=== PATIENT | female | born 2000 | race Caucasian/White ===

== ENCOUNTER 2024-10-16 21:33 | Observation (INO) | payer BC ==
[2024-10-16] MEDS ORDERED: DELTASONE 20 MG ONE (21:56)
[2024-10-16] MEDS ORDERED: ZOFRAN ODT 4 MG ONE (21:56)
[2024-10-16] MEDS: ZOFRAN ODT 4 MG PO ONE (21:58)
[2024-10-16] MEDS: DELTASONE 20 MG PO ONE (21:58)
[2024-10-16] MEDS ORDERED: DUONEB 0.5-3 MG/3 ml Neb IH ONE (21:59)
[2024-10-16] MEDS: DUONEB 0.5-3 MG/3 ml Neb IH ONE (22:03)
[2024-10-16] MEDS ORDERED: Ventolin Hfa MDI IH ONE (22:19)
[2024-10-16] MEDS: Ventolin Hfa MDI IH SCH (22:28)
--- NOTE | 2024-10-16 22:35 | ERPHSYRPT ---
- History of Present Illness Time Seen by Provider: 10/16/24 21:50 Source: patient Exam Limitations: no limitations Patient Subjective Stated Complaint: "I have pneumonia, I was seen at [facility] on Monday and diagnosed. They put my on antibiotics but I can't keep them d own. I started vomiting on Monday and can't keep anything down". Triage Nursing Assessment: Pt presents to ER with complaints of vomiting since Monday. Pt started new Abx on Monday (Amoxicillin) and hasn't been able to keep medication down or any food. Pt is alert and oriented x 3. Skin is pink, warm, and dry. Complains of shortness of breath and constant cough. Green sp utum. Pt is having trouble sleeping at night due to coughing. Pt denies pain. Denies diarrhea. Lung sounds present crackles in LLL. Physician History: 24-year-old female diagnosed with left lung pneumonia at [facility] 4 days ago currently on Augmentin presents to our ED with posttussive emesis. Patient states she has been coughing continuously. The cough is productive of greenish sputum. No fever. Patient is not nauseous. Patient's vomitus is posttussive. No chest pain. No shortness of breath at rest. Decreased p.o. Patient appears to have a bronchial component to her pneumonia. Patient otherwise feels well. She voices no other complaints or concerns at this time. Portions of this note were created with voice recognition technology. There may be grammatical, spelling, punctuation or sound alike errors Timing/Duration: today Severity: moderate Modifying Factors: Improves With: nothing Associated Symptoms: denies symptoms Allergies/Adverse Reactions: bacitracin [From Neosporin ([id number])] Allergy (Verified 10/16/24 21:54) bacitracin zinc [From Neosporin ([id number])] Allergy (Verified 10/16/24 21:54) neomycin sulfate [From Neosporin ([id number])] Allergy (Verified 10/16/24 21:54) polymyxin B [From Neosporin ([id number])] Allergy (Verified 10/16/24 21:54) Sulfa (Sulfonamide Antibiotics) Allergy (Verified 10/16/24 21:54) SHARLA Allergy (Uncoded 11/27/24 21:54) Home Medications: Amoxicillin/Potassium Clav [Amox-Clav 875-125 mg Tablet] 1 tab PO Q12H 10/16/24 [History] Etonogestrel [Nexplanon] 0 dose SQ BETWEEN UNITS 10/16/24 [History] Hx Tetanus, Diphtheria Vaccination/Date Given: Yes Hx Influenza Vaccination/Date Given: Yes Hx Pneumococcal Vaccination/Date Given: Yes Immunizations Up to Date: Yes Travel Risk - International Travel Have you traveled outside of the country in past 3 weeks: No - Emerging Infectious Disease Are you exhibiting symptoms associated with any current EIDs: Yes Symptoms: Shortness of Breath, Vomitting - Review of Systems Constitutional: No Symptoms, No Fever, No Chills Eyes: No Symptoms Ears, Nose, & Throat: No Symptoms Respiratory: No Symptoms, No Cough, No Dyspnea Cardiac: No Symptoms, No Chest Pain, No Edema, No Syncope Abdominal/Gastrointestinal: No Symptoms, No Abdominal Pain, No Nausea, No Vomiting, No Diarrhea Genitourinary Symptoms: No Symptoms, No Dysuria Musculoskeletal: No Symptoms, No Back Pain, No Neck Pain Skin: No Symptoms, No Rash Neurological: No Symptoms, No Dizziness, No Focal Weakness, No Sensory Changes Psychological: No Symptoms Endocrine: No Symptoms Hematologic/Lymphatic: No Symptoms Immunological/Allergic: No Symptoms All Other Systems: Reviewed and Negative - Past Medical History Pertinent Past Medical History: Yes Neurological History: Migraines ENT History: Other Cardiac History: No Pertinent History Respiratory History: No Pertinent History Endocrine Medical History: No Pertinent History Musculoskeletal History: No Pertinent History GI Medical History: No Pertinent History History: No Pertinent History Psycho-Social History: No Pertinent History Female Reproductive Disorders: No Pertinent History Other Medical History: 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, migraines - Past Surgical History Past Surgical History: No Neuro Surgical History: No Pertinent History Cardiac: No Pertinent History Respiratory: No Pertinent History Gastrointestinal: No Pertinent History Genitourinary: No Pertinent History Musculoskeletal: No Pertinent History Female Surgical History: No Pertinent History - Female History Hx Last Menstrual Period: irregular - has control implant Hx Now: No - Social History Smoking Status: Never smoker Exposure to second hand smoke: No Drug Use: none Patient Lives Alone: No - Social Determinants of Health Will the patient participate in the screening: Yes Do you worry about a steady place to live?: No Do you have any problems with any of the following?: No known problems In the past 12 months,have you had to go without utilities?: No Transportation Issues: No Has anyone in your support network made you feel unsafe?: No Have you or anyone in your house had to go without enough: No - Nursing Vital Signs Nursing Vital Signs: Initial Vital Signs Blood Pressure 119/92 10/16/24 21:40 O2 Sat by Pulse Oximetry 95 10/16/24 21:40 Pain Scale Pain Intensity 0 - Physical Exam General Appearance: no apparent distress, alert, other (Dry appearing oral mucous membranes) Eye Exam: PERRL/EOMI, eyes nml inspection Ears, Nose, Throat Exam: normal ENT inspection, TMs normal, pharynx normal, moist mucous membranes Neck Exam: normal inspection, non-tender, supple, full range of motion Respiratory Exam: normal breath sounds, diminished breath sounds, rhonchi (Coarse breath sounds throughout more so left lower lung field), No respiratory distress Cardiovascular Exam: regular rate/rhythm, normal heart sounds, normal peripheral pulses Gastrointestinal/Abdomen Exam: soft, normal bowel sounds, No tenderness, No mass Back Exam: normal inspection, normal range of motion, No CVA tenderness, No vertebral tenderness Extremity Exam: normal inspection, normal range of motion, pelvis stable Neurologic Exam: alert, oriented x 3, cooperative, normal mood/affect, nml cerebellar function, nml station & gait, sensation nml, No motor deficits Skin Exam: normal color, warm, dry, No rash Lymphatic Exam: No adenopathy SpO2 Interpretation: normal SpO2: 93 O2 Delivery: Room Air - Course Nursing assessment & vital signs reviewed: Yes EKG Interpreted by Me: RATE (111), Sinus Tach, NORMAL AXIS, NORMAL INTERVALS, NORMAL QRS - CT Exams Chest CT Interpretation: Tele-radiologist Report (No PE observed. Left lower lobe pneumonia observed) Ordered Tests: Active Orders 24 hr Category Date Time Status Seasonal Package Handler STAT Care 10/16/24 23:06 Active EKG-ER Only STAT Care 10/16/24 23:06 Active IV Insertion STAT Care 10/16/24 23:06 Active Pulse Oximetry (ED) STAT Care 10/16/24 23:06 Active CHEST WITH CONTRAST [CT] Stat Exams 10/16/24 23:07 Completed CBC W DIFF Stat Lab 10/16/24 23:25 Completed CMP Stat Lab 10/16/24 23:25 Completed CULTURE,URINE Stat Lab 10/16/24 23:45 Received HCG QUALITATIVE, URINE Stat Lab 10/16/24 23:45 Completed UA W/RFX UR CULTURE Stat Lab 10/16/24 23:45 Completed Respiratory MDI ONCE RT 10/16/24 22:44 Active Respiratory Therapy Assessment ONCE RT 10/16/24 22:40 Active Medication Summary Generic Name Dose Route Start Last Admin Trade Name Carlyleq PRN Reason Stop Dose Admin Albuterol Sulfate 1 gm 10/16/24 22:45 10/16/24 22:28 Albuterol Sulfate 8 Gm Mdi Hfa IH 11/15/24 22:44 1 gm 1XONLY JESSI Administration Sodium Chloride 1,000 mls @ 100 mls/hr 10/16/24 23:15 10/16/24 23:46 Sodium Chloride 0.9% 1000 Ml IV 11/15/24 23:14 100 mls/hr .Q10H JESSI Administration Discontinued Medications Generic Name Dose Route Start Last Admin Trade Name Carlyleq PRN Reason Stop Dose Admin Albuterol/Ipratropium 3 ml 10/16/24 21:53 10/16/24 22:03 Ipratropium/Albuterol Sulfate 3 Ml Ampul.Neb IH 10/16/24 21:54 3 ml STAT ONE Administration Albuterol/Ipratropium Confirm 10/16/24 21:59 Ipratropium/Albuterol Sulfate 3 Ml Ampul.Neb Administered 10/16/24 22:00 Dose 3 ml IH .STK-MED ONE Azithromycin 500 mg in 250 mls @ 250 mls/hr 10/16/24 23:14 10/17/24 00:55 Zithromax 500 Mg/ 250 Ml Nacl Premix IV 10/17/24 00:13 Infused STAT STA Infusion Azithromycin Confirm 10/16/24 23:44 Zithromax 500 Mg/ 250 Ml Nacl Premix Administered 10/16/24 23:45 Dose 500 mg in 250 mls @ ud IV .STK-MED ONE Ondansetron HCl 4 mg 10/16/24 21:53 10/16/24 21:58 Zofran 4 Mg/Udtablet Orally Disintegrating PO 10/16/24 21:54 4 mg STAT ONE Administration Ondansetron HCl Confirm 10/16/24 21:56 Zofran 4 Mg/Udtablet Orally Disintegrating Administered 10/16/24 21:57 Dose 4 mg .ROUTE .STK-MED ONE Prednisone 60 mg 10/16/24 21:51 10/16/24 21:58 Prednisone 20 Mg Tablet PO 10/16/24 21:52 60 mg STAT ONE Administration Prednisone Confirm 10/16/24 21:56 Prednisone 20 Mg Tablet Administered 10/16/24 21:57 Dose 60 mg .ROUTE .STK-MED ONE Lab/Rad Data: Laboratory Result Diagrams 10/16/24 23:25 10/16/24 23:25 Laboratory Results 10/16/24 10/16/24 10/16/24 Range/Units 23:45 23:45 23:25 WBC (3.98-10.04) x10^3/uL RBC (3.93-5.22) x10^6/uL Hgb (11.2-15.7) g/dL Hct (34.1-44.9) % MCV (79.4-94.8) fL MCH (25.6-32.2) pg MCHC (32.2-35.5) g/dL RDW (11.7-14.4) % Plt Count (182-369) x10^3/uL MPV (9.4-12.3) fL Gran % (34.0-71.1) % Immature Gran % (Auto) (0.001-0.429) % Nucleat RBC Rel Count (0.00-0.2) % Eos # (Auto) (0.04-0.36) x10^3/uL Immature Gran # (Auto) (0.001-0.031) x10^3u/L Absolute Lymphs (auto) (1.18-3.74) x10^3/uL Absolute Monos (auto) (0.24-0.86) x10^3/uL Absolute Nucleated RBC (0.00-0.012) x10^3u/L Lymphocytes % (19.3-51.7) % Monocytes % (4.7-12.5) % Eosinophils % (0.7-5.8) % Basophils % (0.1-1.2) % Absolute Granulocytes (1.56-6.13) x10^3/uL Basophils # (0.01-0.08) x10^3/uL Sodium 138 (135-145) mmol/L Potassium 3.4 L (3.5-5.1) mmol/L Chloride 101 (98-107) mmol/L Carbon Dioxide 25 (22-30) mmol/L Anion Gap 15.9 H (5-15) MEQ/L BUN 7 (7-17) mg/dL Creatinine 0.80 (0.52-1.04) mg/dL Estimated GFR 106.8 ML/MIN Glucose 115 H (74-106) mg/dL Calcium 9.5 (8.4-10.2) mg/dL Total Bilirubin 0.40 (0.2-1.3) mg/dL AST 23 (14-36) U/L ALT 16 (0-35) U/L Alkaline Phosphatase 53 (38-126) U/L Serum Total Protein 7.4 (6.3-8.2) g/dL Albumin 4.5 (3.5-5.0) g/dL Urine Color Yellow (Yellow) Urine Appearance Cloudy A (Clear) Urine pH 6.0 (4.6-8.0) Ur Specific Lyons 1.020 (1.005-1.030) Urine Protein 30 (Negative) Urine Glucose (UA) Negative (Negative) mg/dL Urine Ketones 80 A (Negative) Urine Blood Moderate A (Negative) Urine Nitrite Negative (Negative) Urine Bilirubin Negative (Negative) Urine Urobilinogen 2.0 A (0.2) mg/dL Ur Leukocyte Esterase Negative (Negative) U Hyaline Cast (Auto) NONE SEEN (0-2) /LPF Urine Microscopic RBC 6-10 A (0-5) /HPF Urine Microscopic WBC 0-2 (0-5) /HPF Ur Epithelial Cells Moderate A (None Seen) /HPF Urine Bacteria None Seen (None Seen) /HPF Urine Culture Reflexed YES (NO) Urine HCG, Qual NEGATIVE (NEGATIVE) 10/16/24 Range/Units 23:25 WBC 8.3 (3.98-10.04) x10^3/uL RBC 5.32 H (3.93-5.22) x10^6/uL Hgb 14.7 (11.2-15.7) g/dL Hct 41.7 (34.1-44.9) % MCV 78.4 L (79.4-94.8) fL MCH 27.6 (25.6-32.2) pg MCHC 35.3 (32.2-35.5) g/dL RDW 12.3 (11.7-14.4) % Plt Count 458 H (182-369) x10^3/uL MPV 9.5 (9.4-12.3) fL Gran % 78.9 H (34.0-71.1) % Immature Gran % (Auto) 0.5 H (0.001-0.429) % Nucleat RBC Rel Count 0.0 (0.00-0.2) % Eos # (Auto) 0.08 (0.04-0.36) x10^3/uL Immature Gran # (Auto) 0.04 H (0.001-0.031) x10^3u/L Absolute Lymphs (auto) 1.04 L (1.18-3.74) x10^3/uL Absolute Monos (auto) 0.56 (0.24-0.86) x10^3/uL Absolute Nucleated RBC 0.00 (0.00-0.012) x10^3u/L Lymphocytes % 12.6 L (19.3-51.7) % Monocytes % 6.8 (4.7-12.5) % Eosinophils % 1.0 (0.7-5.8) % Basophils % 0.2 (0.1-1.2) % Absolute Granulocytes 6.53 H (1.56-6.13) x10^3/uL Basophils # 0.02 (0.01-0.08) x10^3/uL Sodium (135-145) mmol/L Potassium (3.5-5.1) mmol/L Chloride (98-107) mmol/L Carbon Dioxide (22-30) mmol/L Anion Gap (5-15) MEQ/L BUN (7-17) mg/dL Creatinine (0.52-1.04) mg/dL Estimated GFR ML/MIN Glucose (74-106) mg/dL Calcium (8.4-10.2) mg/dL Total Bilirubin (0.2-1.3) mg/dL AST (14-36) U/L ALT (0-35) U/L Alkaline Phosphatase (38-126) U/L Serum Total Protein (6.3-8.2) g/dL Albumin (3.5-5.0) g/dL Urine Color (Yellow) Urine Appearance (Clear) Urine pH (4.6-8.0) Ur Specific Lyons (1.005-1.030) Urine Protein (Negative) Urine Glucose (UA) (Negative) mg/dL Urine Ketones (Negative) Urine Blood (Negative) Urine Nitrite (Negative) Urine Bilirubin (Negative) Urine Urobilinogen (0.2) mg/dL Ur Leukocyte Esterase (Negative) U Hyaline Cast (Auto) (0-2) /LPF Urine Microscopic RBC (0-5) /HPF Urine Microscopic WBC (0-5) /HPF Ur Epithelial Cells (None Seen) /HPF Urine Bacteria (None Seen) /HPF Urine Culture Reflexed (NO) Urine HCG, Qual (NEGATIVE) - Progress Progress: improved Progress Note: We are planning on discharging patient home. Ambulatory pulse oximetry shows that patient's O2 sat with ambulation is 92%. Heart rate was 117. The decision was made to obtain laboratory workup and a CT chest to rule out PE. In light of patient's symptomology and objective findings patient will be admitted for f urther evaluation and treatment. Case discussed with Dr. Goodrich who accepts admission to observation at 11:11 PM. Plan of care discussed with patient. She agrees to admission at [facility] for further evaluation and treatment. No blood cultures obtained as patient already on antibiotics and patient afebrile with no systemic manifestations of infection Portions of this note were created with voice recognition technology. There may be grammatical, spelling, punctuation or sound alike errors Complexity of problem addressed is moderate acute complicated no critical care time complex of data reviewed and analyzed is extensive. Test ordered chest reviewed results analyzed and correlated clinically with history and physical exam. Management discussed with hospitalist Dr. Goodrich who accepts admission to observation. Risk of complication and or risk of morbidity/mortality of patient management is high. Patient requires hospitalization for further evaluation and treatment. Vital stable. Time spent admit patient is approximately 20 minutes. Plan of care established for shared decision making. No social determinants of health present to impede follow-up. Portions of this note were created with voice recognition technology. There may be grammatical, spelling, punctuation or sound alike errors 10/16/24 23:12 As we are preparing for discharge patient was observed to have a low oxygen saturation. Patient ambulated throughout our ED O2 sat dropped to 92%. Patient was short of breath. Patient was tachycardic at 117. CTA chest completed no PE. Case discussed with hospitalist Dr. Goodrich who accepts transfer at [id number]. Plan of care discussed with patient. Patient agrees to admission to [facility] for further evaluation and treatment. Portions of this note were created with voice recognition technology. There may be grammatical, spelling, punctuation or sound alike errors 10/17/24 01:29 Counseled pt/family regarding: diagnosis, need for follow-up - Departure Departure Disposition: Home Clinical Impression: Cough, Bronchitis, Post-tussive emesis, Hypoxia, SOB (shortness of breath), Tachycardia, Dehydration, Hematuria, Calcified lung nodule Condition: Stable Critical Care Time: No Referrals: HUI BERNAL, [employer]PAR[employer] MACHINE TENDER [Primary Care Provider] - Follow up/PCP as directed Instructions: Cough, Adult ED, Bronchitis, Adult ED Additional Instructions: Discharge/Care Plan AYANNA MENESES was seen on 10/16/24 in the Emergency Room. The patient was counseled regarding Diagnosis,Lab results, Imaging studies, need for follow up and when to return to the Emergency Room. Prescriptions given: Discharge Note I have spoken with the patient and/or caregivers. I have explained the patient's condition, diagnosis and treatment plan based on the information available to me at this time. I have answered the patient's and/or caregiver's questions and addressed any concerns. The patient and/or caregivers have as good understanding of the patient's diagnosis, condition and treatment plan as can be expected at this point. The vital signs have been stable. The patient's condition is stable and appropriate for discharge from the emergency department. The patient will pursue further outpatient evaluation with the primary care physician or other designated or consulting physician as outlined in the discharge instructions. The patient and/or caregivers are agreeable to this plan of care and follow-up instructions have been explained in detail. The patient and/or caregivers have received these instruction. The patient/and or caregivers are aware that any significant change in condition or worsening of symptoms should prompt an immediate return to this or the closest emergency department or call 911.
[2024-10-16 23:37] LABS: Absolute Neutrophil Ct (ANC) 6.53 x10^3/uL (1.56-6.13); BASOPHIL % 0.2 % (0.1-1.2); Basophil (Absolute #) 0.02 x10^3/uL (0.01-0.08); Eosinophil (Absolute #) 0.08 x10^3/uL (0.04-0.36); Hematocrit 41.7 % (34.1-44.9); Hemoglobin 14.7 g/dL (11.2-15.7); IMMATURE GRAN # 0.04 x10^3u/L (0.001-0.031); IMMATURE GRAN % 0.5 % (0.001-0.429); Lymphocyte (Absolute #) 1.04 x10^3/uL (1.18-3.74); Lymphocytes % 12.6 % (19.3-51.7); Mean Cell Volume 78.4 fL (79.4-94.8); Mean Corpuscular Hemoglobin 27.6 pg (25.6-32.2); Mean Corpuscular Hgb Concent. 35.3 g/dL (32.2-35.5); Mean Platelet Volume 9.5 fL (9.4-12.3); Monocyte (Absolute #) 0.56 x10^3/uL (0.24-0.86); Monocytes % 6.8 % (4.7-12.5); Neutrophil % 78.9 % (34.0-71.1); Platelet Count 458 x10^3/uL (182-369); Red Blood Count 5.32 x10^6/uL (3.93-5.22); Red Cell Distribution Width 12.3 % (11.7-14.4); White Blood Count 8.3 x10^3/uL (3.98-10.04)
[2024-10-16] MEDS ORDERED: Sodium Chloride 0.9% 1000 ML 1,000 ML ONE (23:44)
[2024-10-16] MEDS ORDERED: Zithromax 500 MG/ 250 ML NaCl Premix 500 MG/250 ML IVPB IV ONE (23:44)
[2024-10-16] MEDS: Sodium Chloride 0.9% 1000 ML 1,000 ML IV SCH (23:46)
[2024-10-16] MEDS: Zithromax 500 MG/ 250 ML NaCl Premix 500 MG/250 ML IVPB IV STA (23:46)
[2024-10-16 23:49] LABS: ALBUMIN 4.5 g/dL (3.5-5.0); ANION GAP 15.9 MEQ/L (5-15); BILIRUBIN,TOTAL 0.4 mg/dL (0.2-1.3); Calcium 9.5 mg/dL (8.4-10.2); Creatinine 1 0.8 mg/dL (0.52-1.04); EST GLOMERULAR FILTRATION RATE 106.8 ML/MIN; Potassium 3.4 mmol/L (3.5-5.1); Total Protein 7.4 g/dL (6.3-8.2)
[2024-10-16 23:56] LABS: HCG URINE TEST NEGATIVE (NEGATIVE)
[2024-10-17 00:16] LABS: Appearance Cloudy (Clear); Bacteria None Seen /HPF (None Seen); Bilirubin Negative (Negative); Blood Moderate (Negative); Epithelial Cells Moderate /HPF (None Seen); Glucose, Urine Negative (Negative); Hyaline Casts NONE SEEN /LPF (0-2); Ketones 80 (Negative); Leukocyte Esterase Negative (Negative); Nitrite Negative (Negative); Protein,Urine Dip 30 (Negative); WBC 0-2 /HPF (0-5)
--- NOTE | 2024-10-17 01:17 | XRAY ---
CLINICAL HISTORY: sob, rule out PE COMPARISON: 10/12/2024 09:46:22 CLOCK REPAIRER TECHNIQUE: Contiguous axial images were obtained from the neck base through the upper abdomen following intravenous administration of contrast material. If IV contrast material had not been administered, the likelihood of detecting abnormalities relevant to the patient's condition would have been substantially decreased. In addition, sagittal and coronal reconstructions were performed. CT scan was performed according to ALARA (as low as reasonably achievable). FINDINGS: Suboptimal contrast bolus without evidence of pulmonary embolism. Peribronchovascular consolidation/collapse with air bronchograms noted in the medial segment of middle lobe, superior lingula and posterobasal segment of left lower lobe. A calcified nodule measuring 7.5 mm noted in apicoposterior segment of left upper lobe.The central airways are patent. There are no pleural effusions.No pneumothorax is seen. A few pretracheal and prevascular lymph nodes noted largest measuring 16 x 7 mm in left prevascular region, likely reactive.A few calcified lymph nodes noted in left prevascular and hilar region largest measuring 12 mm.No axillary adenopathy is identified. The thyroid is unremarkable. The heart, aorta, and pulmonary arteries are of normal size and configuration. There are no appreciable coronary artery and aortic atherosclerotic calcifications. No pericardial effusion is identified. Imaged portions of the upper abdomen are unremarkable. No aggressive appearing osseous lesions are identified. IMPRESSION: 1. Suboptimal contrast bolus without evidence of pulmonary embolism. 2. Consolidation/collapse with air bronchogram in the right middle lobe, superior lingula, and left lower lobe ? suggestive of atelectasis or pneumonia. 3. Calcified left upper lobe nodule (7.5 mm), likely benign. 4. Reactive and calcified lymph nodes in the prevascular and hilar regions. Electronically Signed by: Sriram Fowler MD. (10/17/2024 01:13:32 EST)
--- NOTE | 2024-10-17 01:31 | PCM.HP ---
History of Present Illness - Chief Complaint Chief Complaint: sob Date: 10/17/24 History of Present Illness: Ms. MENESES is a 24 year old female with a past medical history significant for migraine headaches who was recently diagnosed with pneumonia after a patient coughed on her during speech pathology class. She was started on oral antibiotics (amoxicillin) but developed nausea, vomiting and worsening cough productive of greenish sputum. She was unable to take her antibiotics consistently and came to the ER for further evaluation. Upon arrival, she was slightly hypoxic and dropped her O2 sats to 92% with ambulation. She underwent CT chest with IV contrast to rule out PE but did show areas of consolidation with reactive nodes. No fever/chills. - Review of Systems Constitutional: No Fever, No Chills Eyes: No Vision Changes Ears, Nose, & Throat: No Sinus Drainage Respiratory: Cough Cardiac: No Chest Pain, No Edema, No Palpitations Abdominal/Gastrointestinal: Nausea, Vomiting Genitourinary Symptoms: No Dysuria, No Frequency, No Hematuria Musculoskeletal: No Joint Pain Skin: No Rash Neurological: No Focal Weakness Psychological: No Suicidal Ideations Medications & Allergies Home Medications: Home Medication List Amoxicillin/Potassium Clav [Amox-Clav 875-125 mg Tablet] 1 tab PO Q12H 10/16/24 [History Confirmed 10/16/24] Etonogestrel [Nexplanon] 0 dose SQ BETWEEN UNITS 10/16/24 [History Confirmed 10/16/24] Allergies/Adverse Reactions: Allergies Allergy/AdvReac Type Severity Reaction Status Date / Time bacitracin Allergy Verified 10/16/24 21:54 [From Neosporin ([id number])] bacitracin zinc Allergy Verified 10/16/24 21:54 [From Neosporin ([id number]-fdq-[id number])] neomycin sulfate Allergy Verified 10/16/24 21:54 [From Neosporin ([id number]-fib-[id number])] polymyxin B Allergy Verified 10/16/24 21:54 [From Neosporin ([id number]-ebl-hyrvp)] Sulfa (Sulfonamide Allergy Verified 10/16/24 21:54 Antibiotics) SHARLA Allergy Uncoded 10/16/24 21:54 - Past Medical History Past Medical History: Yes Neurological History: Migraines ENT History: Other Cardiac History: No Pertinent History Respiratory History: No Pertinent History Endocrine Medical History: No Pertinent History Musculoskelatal History: No Pertinent History GI Medical History: No Pertinent History History: No Pertinent History Pyscho-Social History: No Pertinent History Reproductive Disorders: No Pertinent History Comment: 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, migraines - Female History Hx Last Menstrual Period: irregular - has control implant Are you now?: No - Past Surgical History Past Surgical History: No Neuro Surgical History: No Pertinent History Cardiac History: No Pertinent History Respiratory Surgery: No Pertinent History GI Surgical History: No Pertinent History Genitourinary Surgical Hx: No Pertinent History Musculskeletal Surgical Hx: No Pertinent History Female Surgical History: No Pertinent History - Social History Smoking Status: Never smoker Exposure to second hand smoke: No Alcohol: None Drug Use: none - Social Determinants of Health Will the patient participate in the screening: Yes Do you worry about a steady place to live?: No Do you have any problems with any of the following?: No known problems In the past 12 months,have you had to go without utilities?: No Have you or anyone in your house had to go without enough: No Transportation Issues: No Has anyone in your support network made you feel unsafe?: No - Physical Exam Vital Signs: Vital Signs - 24 hr Temp Pulse Resp BP BP Pulse Ox 10/17/24 00:53 93 L 10/17/24 00:03 109 H 18 134/69 94 L 10/16/24 23:30 107 H 114/78 95 10/16/24 23:16 121 H 19 119/84 93 L 10/16/24 23:08 94 L 10/16/24 23:05 123 H 20 122/103 96 10/16/24 22:51 94 L 10/16/24 22:30 117 H 18 119/87 93 L 10/16/24 22:28 106 H 19 94 L 10/16/24 22:03 103 H 20 94 L 10/16/24 22:00 122/80 94 L 10/16/24 21:41 97.2 F 131 H 20 119/92 93 L 10/16/24 21:40 119/92 95 General Appearance: no apparent distress Neurologic Exam: alert, oriented x 3 Ears, Nose, Throat Exam: dry mucous membranes Neck Exam: supple Respiratory Exam: No respiratory distress Cardiovascular Exam: regular rate/rhythm Gastrointestinal/Abdomen Exam: soft Extremity Exam: No pedal edema, No swelling Skin Exam: normal color, No rash Results - Labs Lab/Micro Results: Lab Results-Last 24 Hours 10/16/24 10/16/24 10/16/24 Range/Units 23:25 23:25 23:45 WBC 8.3 (3.98-10.04) x10^3/uL RBC 5.32 H (3.93-5.22) x10^6/uL Hgb 14.7 (11.2-15.7) g/dL Hct 41.7 (34.1-44.9) % MCV 78.4 L (79.4-94.8) fL MCH 27.6 (25.6-32.2) pg MCHC 35.3 (32.2-35.5) g/dL RDW 12.3 (11.7-14.4) % Plt Count 458 H (182-369) x10^3/uL MPV 9.5 (9.4-12.3) fL Gran % 78.9 H (34.0-71.1) % Immature Gran % (Auto) 0.5 H (0.001-0.429) % Nucleat RBC Rel Count 0.0 (0.00-0.2) % Eos # (Auto) 0.08 (0.04-0.36) x10^3/uL Immature Gran # (Auto) 0.04 H (0.001-0.031) x10^3u/L Absolute Lymphs (auto) 1.04 L (1.18-3.74) x10^3/uL Absolute Monos (auto) 0.56 (0.24-0.86) x10^3/uL Absolute Nucleated RBC 0.00 (0.00-0.012) x10^3u/L Lymphocytes % 12.6 L (19.3-51.7) % Monocytes % 6.8 (4.7-12.5) % Eosinophils % 1.0 (0.7-5.8) % Basophils % 0.2 (0.1-1.2) % Absolute Granulocytes 6.53 H (1.56-6.13) x10^3/uL Basophils # 0.02 (0.01-0.08) x10^3/uL Sodium 138 (135-145) mmol/L Potassium 3.4 L (3.5-5.1) mmol/L Chloride 101 (98-107) mmol/L Carbon Dioxide 25 (22-30) mmol/L Anion Gap 15.9 H (5-15) MEQ/L BUN 7 (7-17) mg/dL Creatinine 0.80 (0.52-1.04) mg/dL Estimated GFR 106.8 ML/MIN Glucose 115 H (74-106) mg/dL Calcium 9.5 (8.4-10.2) mg/dL Total Bilirubin 0.40 (0.2-1.3) mg/dL AST 23 (14-36) U/L ALT 16 (0-35) U/L Alkaline Phosphatase 53 (38-126) U/L Serum Total Protein 7.4 (6.3-8.2) g/dL Albumin 4.5 (3.5-5.0) g/dL Urine Color Yellow (Yellow) Urine Appearance Cloudy A (Clear) Urine pH 6.0 (4.6-8.0) Ur Specific [place] 1.020 (1.005-1.030) Urine Protein 30 (Negative) Urine Glucose (UA) Negative (Negative) mg/dL Urine Ketones 80 A (Negative) Urine Blood Moderate A (Negative) Urine Nitrite Negative (Negative) Urine Bilirubin Negative (Negative) Urine Urobilinogen 2.0 A (0.2) mg/dL Ur Leukocyte Esterase Negative (Negative) U Hyaline Cast (Auto) NONE SEEN (0-2) /LPF Urine Microscopic RBC 6-10 A (0-5) /HPF Urine Microscopic WBC 0-2 (0-5) /HPF Ur Epithelial Cells Moderate A (None Seen) /HPF Urine Bacteria None Seen (None Seen) /HPF Urine Culture Reflexed YES (NO) Urine HCG, Qual (NEGATIVE) 10/16/24 Range/Units 23:45 WBC (3.98-10.04) x10^3/uL RBC (3.93-5.22) x10^6/uL Hgb (11.2-15.7) g/dL Hct (34.1-44.9) % MCV (79.4-94.8) fL MCH (25.6-32.2) pg MCHC (32.2-35.5) g/dL RDW (11.7-14.4) % Plt Count (182-369) x10^3/uL MPV (9.4-12.3) fL Gran % (34.0-71.1) % Immature Gran % (Auto) (0.001-0.429) % Nucleat RBC Rel Count (0.00-0.2) % Eos # (Auto) (0.04-0.36) x10^3/uL Immature Gran # (Auto) (0.001-0.031) x10^3u/L Absolute Lymphs (auto) (1.18-3.74) x10^3/uL Absolute Monos (auto) (0.24-0.86) x10^3/uL Absolute Nucleated RBC (0.00-0.012) x10^3u/L Lymphocytes % (19.3-51.7) % Monocytes % (4.7-12.5) % Eosinophils % (0.7-5.8) % Basophils % (0.1-1.2) % Absolute Granulocytes (1.56-6.13) x10^3/uL Basophils # (0.01-0.08) x10^3/uL Sodium (135-145) mmol/L Potassium (3.5-5.1) mmol/L Chloride (98-107) mmol/L Carbon Dioxide (22-30) mmol/L Anion Gap (5-15) MEQ/L BUN (7-17) mg/dL Creatinine (0.52-1.04) mg/dL Estimated GFR ML/MIN Glucose (74-106) mg/dL Calcium (8.4-10.2) mg/dL Total Bilirubin (0.2-1.3) mg/dL AST (14-36) U/L ALT (0-35) U/L Alkaline Phosphatase (38-126) U/L Serum Total Protein (6.3-8.2) g/dL Albumin (3.5-5.0) g/dL Urine Color (Yellow) Urine Appearance (Clear) Urine pH (4.6-8.0) Ur Specific [place] (1.005-1.030) Urine Protein (Negative) Urine Glucose (UA) (Negative) mg/dL Urine Ketones (Negative) Urine Blood (Negative) Urine Nitrite (Negative) Urine Bilirubin (Negative) Urine Urobilinogen (0.2) mg/dL Ur Leukocyte Esterase (Negative) U Hyaline Cast (Auto) (0-2) /LPF Urine Microscopic RBC (0-5) /HPF Urine Microscopic WBC (0-5) /HPF Ur Epithelial Cells (None Seen) /HPF Urine Bacteria (None Seen) /HPF Urine Culture Reflexed (NO) Urine HCG, Qual NEGATIVE (NEGATIVE) - Radiology Impressions Radiology Exams & Impressions: Radiology Procedures Category Date Time Status CHEST WITH CONTRAST [CT] Stat Exams 10/16/24 23:07 Completed - Other Procedures and Tests Respiratory Therapy 10/16/24 22:40 Respiratory Therapy Assessment ONCE 10/16/24 22:44 Respiratory MDI ONCE Assessment/Plan (1) Pneumonia Current Visit: Yes Status: Acute Qualifiers: Pneumonia type: due to unspecified organism Assessment & Plan: Community acquired pneumonia - had been on amoxicillin but unable to tolerate, now with some mild hypoxia associated with productive cough 1. Admit to hospital 2. IV antibiotics with Rocephin/Zithromax 3. Supplemental O2 4. Duonebs 5. Monitor O2 sats Code(s): J18.9 - PNEUMONIA, UNSPECIFIED ORGANISM (2) Hypoxia Current Visit: Yes Status: Acute Assessment & Plan: Secondary to pneumonia and bronchitis 1. Supplemental O2 2. Duonebs 3. Defer steroids 4. Monitor O2 sats Code(s): R09.02 - HYPOXEMIA (3) Post-tussive emesis Current Visit: Yes Status: Acute Assessment & Plan: Secondary to cough 1. Anti-emetics 2. Anti-tussives Code(s): R11.10 - VOMITING, UNSPECIFIED Telemedicine Encounter - Telemedicine Encounter Telemedicine Encounter: "The entirety of this encounter was performed via Telemedicine" This visit was performed using real-time audio and video connection between my location and thepatients locationwith the assistance of a surrogateat the patients location. Written or verbal consent was obtained from the patient/guardian to perform this visit usingn[facility] [place] hospitalslemedicine technology. Any patient questions regarding the telemedicine interaction were answered.
[2024-10-17] MEDS ORDERED: Zofran 4 MG/2 ML VIAL IV PRN (02:03)
[2024-10-17] MEDS ORDERED: Robitussin-Dm Syrup PO PRN (02:05)
[2024-10-17] MEDS: DUONEB 0.5-3 MG/3 ml Neb IH SCH (05:31)
[2024-10-17 06:11] LABS: Hematocrit 43.7 % (34.1-44.9); Hemoglobin 14.9 g/dL (11.2-15.7); Mean Cell Volume 80.8 fL (79.4-94.8); Mean Corpuscular Hemoglobin 27.5 pg (25.6-32.2); Mean Corpuscular Hgb Concent. 34.1 g/dL (32.2-35.5); Mean Platelet Volume 9.4 fL (9.4-12.3); Platelet Count 407 x10^3/uL (182-369); Red Blood Count 5.41 x10^6/uL (3.93-5.22)
[2024-10-17 06:25] LABS: ANION GAP 19.2 MEQ/L (5-15); Calcium 9.4 mg/dL (8.4-10.2); Creatinine 1 0.75 mg/dL (0.52-1.04); EST GLOMERULAR FILTRATION RATE 115.4 ML/MIN; MAGNESIUM 2.1 mg/dL (1.6-2.3); Potassium 3.6 mmol/L (3.5-5.1)
[2024-10-17 06:54] LABS: BAND 2 % (0.0-2.0); Lymphocytes 15 % (19.3-51.7); Monocyte 2 % (4.7-12.5); Neutrophils 81 % (34.0-71.1); Total Cells Counted 100
[2024-10-17 06:55] LABS: Platelet Estimate NORMAL (NORMAL)
[2024-10-17 07:10] VITALS: BP 118/67; PULSE 102; RESP 16; TEMP 98; O2SAT 95
[2024-10-17] MEDS: ROCEPHIN 1 GM / 100 ML NaCl 1 GM/100 ML IVPB IV SCH (09:44)
[2024-10-17] MEDS: Protonix 40MG Tablet PO SCH (09:48)
--- NOTE | 2024-10-17 10:15 | PCM.DS ---
Discharge Summary Date of Admission: 10/17/24 01:42 Date of Discharge: 10/17/2024 Admitting Physician: ZAIN ROMAN MD Primary Care Provider: HUI BERNAL Allergies Allergies bacitracin [From Neosporin (nul-nnk-voqst)] Allergy (Verified 10/16/24 21:54) bacitracin zinc [From Neosporin ([id number]-rxd-yhqlt)] Allergy (Verified 10/16/24 21:54) neomycin sulfate [From Neosporin (uww-pxu-fazgw)] Allergy (Verified 10/16/24 21:54) polymyxin B [From Neosporin (ulr-cqq-wniyf)] Allergy (Verified 10/16/24 21:54) Sulfa (Sulfonamide Antibiotics) Allergy (Verified 10/16/24 21:54) SHARLA Allergy (Uncoded 10/16/24 21:54) Hospital Summary - Hospital Course Hospital Course: Ms. MENESES is a 24 year old female with a past medical history significant for migraine headaches who was recently diagnosed with pneumonia after a patient coughed on her during speech pathology class. She was started on oral antibiotics (amoxicillin) but developed nausea, vomiting and worsening cough productive of greenish sputum. She was unable to take her antibiotics c onsistently and came to the ER for further evaluation. Upon arrival, she was slightly hypoxic and dropped her O2 sats to 92% with ambulation. She underwent CT chest with IV contrast to rule out PE but did show areas of consolidation with reactive nodes. No fever/chills. Patient was admitted and started on ceftriaxone and azithromycin. This morning she was feeling well and requested discharge. She was discharged with levaquin 750 mg for 5 days. - Vitals & Intake/Output Vital Signs: Vital Signs Temperature 98.0 F 10/17/24 07:09 Pulse Rate 102 H 10/17/24 07:09 Respiratory Rate 16 10/17/24 07:09 Blood Pressure 118/67 10/17/24 07:09 O2 Sat by Pulse Oximetry 95 10/17/24 07:09 Intake & Output: Intake & Output 10/14/24 10/15/24 10/16/24 10/17/24 11:59 11:59 11:59 11:59 Intake Total 674 Balance 674 Weight 77.4 kg - Lab Result Diagrams: 10/17/24 05:58 10/17/24 05:58 Lab Results-Last 24 Hrs: Lab Results-Last 24 Hours 10/16/24 10/16/24 10/16/24 Range/Units 23:25 23:25 23:45 WBC 8.3 (3.98-10.04) x10^3/uL RBC 5.32 H (3.93-5.22) x10^6/uL Hgb 14.7 (11.2-15.7) g/dL Hct 41.7 (34.1-44.9) % MCV 78.4 L (79.4-94.8) fL MCH 27.6 (25.6-32.2) pg MCHC 35.3 (32.2-35.5) g/dL RDW 12.3 (11.7-14.4) % Plt Count 458 H (182-369) x10^3/uL MPV 9.5 (9.4-12.3) fL Gran % 78.9 H (34.0-71.1) % Immature Gran % (Auto) 0.5 H (0.001-0.429) % Nucleat RBC Rel Count 0.0 (0.00-0.2) % Eos # (Auto) 0.08 (0.04-0.36) x10^3/uL Immature Gran # (Auto) 0.04 H (0.001-0.031) x10^3u/L Absolute Lymphs (auto) 1.04 L (1.18-3.74) x10^3/uL Absolute Monos (auto) 0.56 (0.24-0.86) x10^3/uL Absolute Nucleated RBC 0.00 (0.00-0.012) x10^3u/L Lymphocytes % 12.6 L (19.3-51.7) % Monocytes % 6.8 (4.7-12.5) % Eosinophils % 1.0 (0.7-5.8) % Basophils % 0.2 (0.1-1.2) % Absolute Granulocytes 6.53 H (1.56-6.13) x10^3/uL Segmented Neutrophils (34.0-71.1) % Band Neutrophils (0.0-2.0) % Lymphocytes (Manual) (19.3-51.7) % Monocytes (Manual) (4.7-12.5) % Basophils # 0.02 (0.01-0.08) x10^3/uL Platelet Estimate (NORMAL) RBC Morphology Sodium 138 (135-145) mmol/L Potassium 3.4 L (3.5-5.1) mmol/L Chloride 101 (98-107) mmol/L Carbon Dioxide 25 (22-30) mmol/L Anion Gap 15.9 H (5-15) MEQ/L BUN 7 (7-17) mg/dL Creatinine 0.80 (0.52-1.04) mg/dL Estimated GFR 106.8 ML/MIN Glucose 115 H (74-106) mg/dL Calcium 9.5 (8.4-10.2) mg/dL Magnesium (1.6-2.3) mg/dL Total Bilirubin 0.40 (0.2-1.3) mg/dL AST 23 (14-36) U/L ALT 16 (0-35) U/L Alkaline Phosphatase 53 (38-126) U/L Serum Total Protein 7.4 (6.3-8.2) g/dL Albumin 4.5 (3.5-5.0) g/dL Urine Color Yellow (Yellow) Urine Appearance Cloudy A (Clear) Urine pH 6.0 (4.6-8.0) Ur Specific [place] 1.020 (1.005-1.030) Urine Protein 30 (Negative) Urine Glucose (UA) Negative (Negative) mg/dL Urine Ketones 80 A (Negative) Urine Blood Moderate A (Negative) Urine Nitrite Negative (Negative) Urine Bilirubin Negative (Negative) Urine Urobilinogen 2.0 A (0.2) mg/dL Ur Leukocyte Esterase Negative (Negative) U Hyaline Cast (Auto) NONE SEEN (0-2) /LPF Urine Microscopic RBC 6-10 A (0-5) /HPF Urine Microscopic WBC 0-2 (0-5) /HPF Ur Epithelial Cells Moderate A (None Seen) /HPF Urine Bacteria None Seen (None Seen) /HPF Urine Culture Reflexed YES (NO) Urine HCG, Qual (NEGATIVE) 10/16/24 10/17/24 10/17/24 Range/Units 23:45 05:58 05:58 WBC 6.0 (3.98-10.04) x10^3/uL RBC 5.41 H (3.93-5.22) x10^6/uL Hgb 14.9 (11.2-15.7) g/dL Hct 43.7 (34.1-44.9) % MCV 80.8 (79.4-94.8) fL MCH 27.5 (25.6-32.2) pg MCHC 34.1 (32.2-35.5) g/dL RDW 12.0 (11.7-14.4) % Plt Count 407 H (182-369) x10^3/uL MPV 9.4 (9.4-12.3) fL Gran % (34.0-71.1) % Immature Gran % (Auto) (0.001-0.429) % Nucleat RBC Rel Count (0.00-0.2) % Eos # (Auto) (0.04-0.36) x10^3/uL Immature Gran # (Auto) (0.001-0.031) x10^3u/L Absolute Lymphs (auto) (1.18-3.74) x10^3/uL Absolute Monos (auto) (0.24-0.86) x10^3/uL Absolute Nucleated RBC (0.00-0.012) x10^3u/L Lymphocytes % (19.3-51.7) % Monocytes % (4.7-12.5) % Eosinophils % (0.7-5.8) % Basophils % (0.1-1.2) % Absolute Granulocytes (1.56-6.13) x10^3/uL Segmented Neutrophils 81 H (34.0-71.1) % Band Neutrophils 2 (0.0-2.0) % Lymphocytes (Manual) 15 L (19.3-51.7) % Monocytes (Manual) 2 L (4.7-12.5) % Basophils # (0.01-0.08) x10^3/uL Platelet Estimate NORMAL (NORMAL) RBC Morphology NORMAL Sodium 139 (135-145) mmol/L Potassium 3.6 (3.5-5.1) mmol/L Chloride 103 (98-107) mmol/L Carbon Dioxide 21 L (22-30) mmol/L Anion Gap 19.2 H (5-15) MEQ/L BUN 6 L (7-17) mg/dL Creatinine 0.75 (0.52-1.04) mg/dL Estimated GFR 115.4 ML/MIN Glucose 161 H (74-106) mg/dL Calcium 9.4 (8.4-10.2) mg/dL Magnesium 2.1 (1.6-2.3) mg/dL Total Bilirubin (0.2-1.3) mg/dL AST (14-36) U/L ALT (0-35) U/L Alkaline Phosphatase (38-126) U/L Serum Total Protein (6.3-8.2) g/dL Albumin (3.5-5.0) g/dL Urine Color (Yellow) Urine Appearance (Clear) Urine pH (4.6-8.0) Ur Specific [place] (1.005-1.030) Urine Protein (Negative) Urine Glucose (UA) (Negative) mg/dL Urine Ketones (Negative) Urine Blood (Negative) Urine Nitrite (Negative) Urine Bilirubin (Negative) Urine Urobilinogen (0.2) mg/dL Ur Leukocyte Esterase (Negative) U Hyaline Cast (Auto) (0-2) /LPF Urine Microscopic RBC (0-5) /HPF Urine Microscopic WBC (0-5) /HPF Ur Epithelial Cells (None Seen) /HPF Urine Bacteria (None Seen) /HPF Urine Culture Reflexed (NO) Urine HCG, Qual NEGATIVE (NEGATIVE) - Radiology Exams Ordered Rad Exams-Entire Visit: Radiology Procedures Category Date Time Status CHEST WITH CONTRAST [CT] Stat Exams 10/16/24 23:07 Completed - Procedures and Test Procedures and Tests throughout Hospitalization: Therapy Orders & Screens 10/16/24 22:40 Respiratory Therapy Assessment ONCE Comment: 10/16/24 22:44 Respiratory MDI ONCE Comment: 10/17/24 02:03 Respiratory Therapy Consult ONCE Comment: Reason For Exam: Diagnosis: sob 10/17/24 02:23 Respiratory Therapy Assessment DAILY Comment: Diagnosis: sob Discharge Exam General Appearance: no apparent distress, alert Neurologic Exam: alert, oriented x 3, cooperative, normal mood/affect, nml cerebellar function, sensation nml, No motor deficits Eye Exam: PERRL, EOMI, eyes nml inspection Ears, Nose, Throat Exam: normal ENT inspection, pharynx normal, moist mucous membranes Neck Exam: normal inspection, non-tender, supple, full range of motion Respiratory Exam: normal breath sounds, lungs clear, No respiratory distress Cardiovascular Exam: regular rate/rhythm, normal heart sounds Gastrointestinal/Abdomen Exam: soft, No tenderness, No mass Pelvic Exam: deferred Rectal Exam: deferred Extremity Exam: normal inspection, normal range of motion Skin Exam: normal color, warm, dry Final Diagnosis/Problem List - Final Discharge Diagnosis/Problem (1) Community acquired pneumonia Status: Acute Code(s): J18.9 - PNEUMONIA, UNSPECIFIED ORGANISM Telemedicine Encounter - Telemedicine Encounter Telemedicine Encounter: "The entirety of this encounter was performed via Telemedicine" This visit was performed using real-time audio and video connection between my location and thepatients locationwith the assistance of a surrogateat the patients location. Written or verbal consent was obtained from the patient/guardian to perform this visit usingDev[employer] Security Servicesavocarrotcine technology. Any patient questions regarding the telemedicine interaction were answered. - Discharge Discharge Date: 10/17/24 Disposition: Home, Self-Care Condition: Stable Prescriptions: New levoFLOXacin [Levofloxacin] 750 mg PO DAILY 5 Days tablet Continue Etonogestrel [Nexplanon] 0 dose SQ BETWEEN UNITS Discontinued Amoxicillin/Potassium Clav [Amox-Clav 875-125 mg Tablet] 1 tab PO Q12H Instructions: Pneumonia in adults Follow up with: HUI BERNAL NP [Primary Care Provider] - Call for Appointment
[2024-10-17] MEDS ORDERED: Zithromax 500 MG/ 250 ML NaCl Premix 500 MG/250 ML IVPB IV SCH (22:00)
== END 2024-10-17 11:17 | disposition home or self-care (01) ==
LOC: ED 21:33 → MED SURG 10-17 01:42
PROVIDERS: ADMIT Internal Medicine Nephrology; ATTEND Internal Medicine Nephrology
DX: J18.9 Pneumonia, unspecified organism (principal); R06.02 Shortness of breath; R11.2 Nausea with vomiting, unspecified
CPT/HCPCS: 36415; 71260; 80048; 80053; 81001; 81025; 83735; 85025; 87086; 93005; 93041; 94640; 94760; 96365; 99285; G0378; Q3014; J0456; J0696; Q0162; A9270-GY